=== PATIENT | male | born 1960 | race Caucasian/White ===

== ENCOUNTER → 2020-08-09 | Outpatient (CLI) | payer BC ==
--- NOTE | 2020-08-09 09:36 | US ---
EXAMINATION TYPE: US carotid duplex BILAT DATE OF EXAM: 08/09/2020 COMPARISON: NONE CLINICAL HISTORY: 59-year-old male R07.89 OTHER CHEST PAIN. Dizziness TECHNIQUE: Carotid duplex ultrasound examination. In direct Doppler criteria was utilized. FINDINGS: EXAM MEASUREMENTS: RIGHT: Peak Systolic Velocity (PSV) cm/sec ----- Right CCA: 72.1 ----- Right ICA: 89.5 ----- Right ECA: 124.4 ICA/CCA ratio: 1.2 RIGHT: End Diastole cm/sec ----- Right CCA: 25.6 ----- Right ICA: 37.2 ----- Right ECA: 28.5 LEFT: Peak Systolic Velocity (PSV) cm/sec ----- Left CCA: 88.1 ----- Left ICA: 86.6 ----- Left ECA: 121.5 ICA/CCA ratio: 1.0 LEFT: End Diastole cm/sec ----- Left CCA: 31.4 ----- Left ICA: 31.4 ----- Left ECA: 31.4 VERTEBRALS (direction of flow): Right Vertebral: Antegrade Left Vertebral: Antegrade Rhythm: Normal Supervisor [employer] notes: No significant stenosis seen Grayscale images show scattered mild to moderate atherosclerotic calcifications at the bifurcations. IMPRESSION: No hemodynamically significant internal carotid artery stenosis on either side. Criteria for Assigning % of Stenosis / Diameter reduction (Estimation based on the indirect measurements of the internal carotid artery velocities (ICA PSV). 1. Normal (no stenosis)=ICA PSV < 125 cm/s: ratio < 2.0: ICA EDV<40 cm/s. 2. Less than 50% stenosis=ICA PSV < 125 cm/s: ratio < 2.0: ICA EDV<40 cm/s. 3. 50 to 69% stenosis=ICA PSV of 125 to 230 cm/s: ration 2.0 ? 4.0: ICA EDV 40-100 cm/s. 4. Greater than 70% stenosis to near occlusion= ICA PSV > 230 cm/s: ratio > 4.0: ICA EDV > 100 cm/s. 5. Near occlusion= ICA PSV velocities may be low or undetectable: variable ratio and ICA EDV. 6. Total occlusion=unable to detect flow.
--- NOTE | 2020-08-10 12:36 | ECHOS ---
STRESS ECHOCARDIOGRAM LUMASON: Vial INDICATIONS: Chest pain. MEDICATIONS: BASELINE HEART RATE: 96 BASELINE BLOOD PRESSURE: 151/94 MAXIMUM HEART RATE: 149 MAXIMUM BLOOD PRESSURE: 206/88 85% MPHR: 135 100% MPHR: 159 METS: 10 MAXIMUM STAGE REACHED: IV TOTAL EXERCISE TIME: 9 minutes CLINICAL INFORMATION: STRESS DATA: Heart rate is 96, pressure is 151/94 mmHg. Baseline EKG showed sinus mechanism. The patient exercised on the treadmill according to Joseluis protocol for a total of 9 minutes and achieved 10 METs. Max heart rate was 149, which is about 94% of maximum predicted heart rate. Maximum blood pressure was 206/88 mmHg. Clinically, the patient did not have any chest pain or chest discomfort and the EKG did not show any significant ST or T-wave abnormalities concerning for ischemia. ECHOCARDIOGRAM IMAGES: On echocardiogram images from parasternal long axis view, parasternal short axis view, apical 4 chamber and apical 2 chamber were obtained as the baseline images, at the peak of the heart rate as well as on recovery. The echocardiogram images showed good augmentation in the left ventricular systolic function without any evidence of wall motion abnormalities concerning for ischemia. CONCLUSION: 1. Good exercise tolerance. 2. Mild EKG changes in response to exercise. 3. Normal echocardiogram in response to exercise. MMODL / IJN: [id number] /
== END | disposition home or self-care (01) ==
LOC: RADUSWWP 08:06
PROVIDERS: ATTEND Family Medicine
DX: R94.31 Abnormal electrocardiogram [ECG] [EKG] (principal); R07.89 Other chest pain
CPT/HCPCS: 93351; 93880